=== PATIENT | male | born 1945 | race Caucasian/White ===

== ENCOUNTER 2018-04-26 09:43 | Inpatient (IN) | payer OTHER ==
--- NOTE | 2018-04-26 07:16 | PDHPUP ---
History & Physical Update H&P update statement: This history and physical update is based on an assessment of the patient which was completed after admission or registration (within 24 hours), but prior to the surgery/procedure. H&P update: H&P reviewed & patient examined, no change in patient's condition since H&P completed
[~2018-04-26 09:43] MED LIST: ROPIVACAINE 0.2% 80 MG, EPINEPHrine 0.2 MG, KETOROLAC TROMETHAMINE 30 MG in SYRINGE 0 ML IU ONE; TRANEXAMIC ACID 3,000 MG in NS (SYRINGE) 50 ML IRR ONE
[2018-04-26] MEDS ORDERED: FAMOTIDINE 20 MG TAB PO ONE (09:49)
[2018-04-26] MEDS ORDERED: ceFAZolin 2 GM/DEXTROSE 100 ML IV ONE (09:49)
[2018-04-26] MEDS ORDERED: DEXAMETHASONE 4 MG/ML VIAL IVP ONE (09:49)
[2018-04-26] MEDS ORDERED: ACETAMINOPHEN 325 MG TAB PO ONE (09:49)
[2018-04-26] MEDS ORDERED: LR 1,000 ML IV ONE (09:51)
[2018-04-26] MEDS ORDERED: TRANEXAMIC ACID 3,000 MG/50 ML BAG IRR ONE (11:00)
[2018-04-26] MEDS ORDERED: ROPIVACAINE HCL 150 MG/30 ML INJ ONE (11:38)
[2018-04-26] MEDS ORDERED: LIDOCAINE 2% 2 ML INJ ONE (11:41)
[2018-04-26] MEDS ORDERED: MIDAZOLAM 2 MG/2 ML VIAL ONE (11:52)
[2018-04-26] MEDS ORDERED: PROPOFOL/EMULSION 500 MG/50 ML BOTTLE IV ONE (11:57)
[2018-04-26] MEDS ORDERED: ALBUTEROL 3 ML DEYVIAL IH PRN (12:06)
[2018-04-26] MEDS ORDERED: fentaNYL 100 MCG/2 ML INJ IVP PRN (12:06)
[2018-04-26] MEDS ORDERED: NALOXONE HCL 0.4 MG/ML INJ IVP PRN ×2 (12:06)
--- NOTE | 2018-04-26 12:06 | PDANEPAE ---
ANE Past Medical History - Cardiovascular History Hx Hypertension: No Hx Arrhythmias: No Hx Chest Pain: No Hx Coronary Artery / Peripheral Vascular Disease: No Hx CHF / Valvular Disease: No Hx Palpitations: No - Pulmonary History Hx COPD: No Hx Asthma/Reactive Airway Disease: No Hx Recent Upper Respiratory Infection: No Hx Oxygen in Use at Home: No Hx Sleep Apnea: Yes Sleep Apnea Screening Result - Last Documented: Positive Pulmonary History Comment: pt smokes 2 cigars a week - Neurologic History Hx Cerebrovascular Accident: No Hx Seizures: No Hx Dementia: No - Endocrine History Hx Diabetes: No - Renal History Hx Renal Disorders: No - Liver History Hx Hepatic Disorders: No - Neurological & Psychiatric Hx Hx Neurological and Psychiatric Disorders: Yes Neurological / Psychiatric History Comment: L foot after crushed heel - Cancer History Hx Cancer: Yes Cancer History Comment: Bladder 2010 - Congenital Disorder History Hx Congenital Disorders: No - GI History Hx Gastrointestinal Disorders: No - Other Health History Other Health History: none - Chronic Pain History Chronic Pain: No - Surgical History Prior Surgeries: lipoma removed 07/31. 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 ANE Review of Systems Review of Systems: - Exercise capacity METS (RN): 4 METS ANE Patient History - Allergies Allergies/Adverse Reactions: No Known Allergies Allergy (Verified 03/23/18 10:18) - Home Medications Home Medications: Vortioxetine Hydrobromide [Brintellix] 10 mg PO DAILY 03/21/18 [Last Taken 04/26 08:00] amLODIPine BESYLATE [Norvasc 10 mg (*)] 10 mg PO DAILY 03/21/18 [Last Taken 08/01 08:00] buPROPion XL [Wellbutrin Xl] 300 mg PO DAILY 03/21/18 [Last Taken 04/26/18 08:00 ] - NPO status NPO Since - Liquids (Date): 04/26/18 NPO Since - Liquids (Time): 08:00 NPO Since - Solids (Date): 04/25/18 NPO Since - Solids (Time): 20:00 - Smoking Hx Smoking Status: Former smoker - Family Anes Hx Family Hx Anesthesia Complications: none ANE Labs/Vital Signs - Vital Signs Blood Pressure: 157/93 Heart Rate: 85 Respiratory Rate: 18 O2 Sat (%): 94 Height: 182.88 cm Weight: 113.398 kg ANE Physical Exam - Airway Neck exam: decreased ROM, short neck Mallampati Score: Class 2 Mouth exam: normal dental/mouth exam - Pulmonary Pulmonary: no respiratory distress, no rales or rhonchi, reduced air movement - Cardiovascular Cardiovascular: regular rate and rhythym, no murmur, rub, or gallop - ASA Status ASA Status: III ANE Anesthesia Plan Anesthesia Plan: spinal Regional Anesthesia: single shot NB, adductor canal FNB
[2018-04-26] MEDS ORDERED: DEXAMETHASONE 4 MG/ML VIAL IVP PRN (12:17)
[2018-04-26] MEDS ORDERED: DIAZEPAM 5 MG/ML 1 ML SYR IVP PRN (12:17)
[2018-04-26] MEDS ORDERED: ONDANSETRON 4 MG/2 ML VIAL IVP PRN ×2 (12:17→13:16)
[2018-04-26] MEDS ORDERED: LR 500 ML IV PRN (12:17)
[2018-04-26] MEDS ORDERED: ONDANSETRON 4 MG/2 ML VIAL ONE (12:24)
[2018-04-26] MEDS ORDERED: RANITIDINE 50 MG/2 ML VIAL ONE (12:24)
[2018-04-26] MEDS ORDERED: fentaNYL 100 MCG/2 ML INJ ONE (12:35)
[2018-04-26] MEDS ORDERED: PROPOFOL 200 MG/20 ML VIAL ONE (12:36)
[2018-04-26] MEDS ORDERED: BISACODYL 10 MG SUPP PR PRN (13:16)
[2018-04-26] MEDS ORDERED: POLYETHYLENE GLYCOL 3350 17 GM PKT PO PRN (13:16)
[2018-04-26] MEDS ORDERED: oxyCODONE IR 5 MG TAB PO PRN (13:16)
[2018-04-26] MEDS ORDERED: ONDANSETRON DISINTEGRATING 4 MG TAB PO PRN (13:16)
[2018-04-26] MEDS ORDERED: PROMETHAZINE HCL 25 MG SUPPR PR PRN (13:16)
[2018-04-26] MEDS ORDERED: DIPHENOXYLATE/ATROPINE LOMOTIL 1 TAB PO PRN (13:16)
[2018-04-26] MEDS ORDERED: MAGNESIUM HYDROXIDE 30 ML UDCUP PO PRN (13:16)
[2018-04-26] MEDS ORDERED: LACTULOSE 20 GM/30 ML UDCUP PO PRN (13:16)
[2018-04-26] MEDS ORDERED: TEMAZEPAM 15 MG CAP PO PRN (13:16)
[2018-04-26] MEDS ORDERED: METOCLOPRAMIDE 10 MG/2 ML VIAL IVP PRN (13:16)
[2018-04-26] MEDS ORDERED: diphenhydrAMINE 25 MG CAP PO PRN (13:16)
[2018-04-26] MEDS ORDERED: CYCLOBENZAPRINE 10 MG TAB PO PRN (13:16)
[2018-04-26] MEDS ORDERED: PROMETHAZINE HCL 25 MG/ML INJ IVP PRN (13:16)
--- NOTE | 2018-04-26 13:16 | POSTOPPROG ---
Post Op Note Date of Operation: 04/26/18 Surgeon: Parvez Perez Event Coordinator Marketing And Sales: leola perez Anesthesiologist: dr. eagle Anesthesia: Spinal, Other (Specify) (adductor canal block) Pre-op Diagnosis: left knee OA Post-op Diagnosis: same Indication: left knee pain due to OA that failed conservative measures Procedure: L TKA robot assisted, sensor assisted Findings: severe knee OA Inf/Abcess present in the surg proc area at time of surgery?: No EBL: 50-100
[2018-04-26] MEDS ORDERED: LR 1,000 ML IV SCH (13:30)
[2018-04-26] MEDS: ACETAMINOPHEN 325 MG TAB PO SCH ×2 (17:53→23:43)
[2018-04-26] MEDS: ceFAZolin 2 GM/DEXTROSE 100 ML IV SCH (18:01)
--- NOTE | 2018-04-26 18:43 | PDMN ---
Medical Necessity Medical necessity: Pt meets IP criteria per PA; est los >2 mn s/p L TKA POD #0; comorbid advanced age, HTN, L medial thigh mass excision w/ post-op staph infection; per order 04/26/18
--- NOTE | 2018-04-26 19:18 | GOP ---
DATE OF OPERATION: 04/26/2018 SURGEON: Kathy Armendariz MD PERINATAL TECHNICIAN: Ely Armendariz PA-C. ANESTHESIA: Spinal. PREOPERATIVE DIAGNOSIS: Left knee, osteoarthritis. POSTOPERATIVE DIAGNOSIS: Left knee, osteoarthritis. PROCEDURE PERFORMED: Left total knee arthroplasty with computer navigation, robotic assist. FINDINGS: ESTIMATED BLOOD LOSS: 30 mL. INDICATIONS: The patient is a 73-year-old male with severe and progressive pain and deformity of the left knee unresponsive to conservative care. The risks and benefits of surgical intervention were explained in detail. DESCRIPTION OF PROCEDURE: The patient was brought to the operative room and placed on the table in the supine position. Spinal anesthesia was induced without difficulty. A pneumatic tourniquet was applied about the left proximal thigh, and the leg was prepped and draped in a sterile fashion. The leg chaidez was applied. After exsanguination by elevation the tourniquet was inflated to 250 mmHg. Incision was made anterior medial from the tibial tuberosity to a point 2 cm proximal to the superior pole of the patella. Medial parapatellar arthrotomy was carried out from the superior pole of the patella and posteriorly in line with the fibers of the Type II VMO. The medial collateral ligament was elevated and the infrapatellar fat pad was resected. The patella was everted and the articular surface was excised. A 40 mm patellar button was placed. Attention was turned first to the distal aspect of the femur. After exposure of the femur, 2 half pins were placed for fixation of the femoral array. In a similar fashion, 2 pins were placed anteromedial on the tibia for fixation of the tibial array. External land marking and registration of the hip center was performed without difficulty. Internal femoral and tibial registration was carried out without difficulty and the femoral and tibial checkpoints were placed and verified for accuracy. Attention was turned to the femur. The foot print for the size 6 femoral component was cut with the saw using the [employer] robotic system and verified for accuracy against the CT based plan. In a similar fashion, the saw was used to cut the footprint for the size 7 tibial component using the [employer] system and verified for accuracy against the CT based plan. The tibial articular surface was excised without difficulty, followed by the intercondylar box cut. The knee was extended and the remnants of the medial and lateral meniscus were excised. The posterior capsule was injected with ropivacaine, epinephrine and Toradol. A size 7 tibial tray was positioned. Trial reduction was then carried out. There was excellent range of motion, alignment, and stability using the 7 x 9 mm polyethylene. All trials were then removed. The joint was thoroughly irrigated and carefully dried. The pressfit components were implanted. The permanent 7 x 9 mm polyethylene was placed without difficulty. The tourniquet was deflated and all bleeders were coagulated. The wound was thoroughly irrigated and closed using interrupted sutures of 2-0 Vicryl for the joint capsule. The subcu was closed with 3-0 Vicryl and the skin with 4-0 Monocryl. Dermabond and Steri-Strips were applied followed by a compressive dressing. The patient was then moved from the operating room to the recovery room in good condition, having tolerated the procedure well. PATHOLOGY: 1. Severe tricompartmental Osteoarthritis. IMPLANTS: 1. 40 mm patella button. Size 6 femur, size 7 tibia, permanent 7 x 9 mm polyethylene, PressFit components. 2. Pain and deformity of the left knee unresponsive to conservative care. The risks and benefits of surgical intervention were explained in detail. /[id number]/MODL MTDD
--- NOTE | 2018-04-26 19:47 | POSTANESTH ---
Post Anesthetic Evaluation Cardiovascular Status: Normal, Stable, Similar to Pre-Op Cond Respiratory Status: Normal, Stable, Similar to Pre-op Cond. Level of Consciousness/Mental Status: Mildly Sleepy, Arousable Pain Control: Adequate, Prn Tx Ordered Nausea/Vomiting Control: Adequate, Prn Tx Ordered Complications Possibly Related to Anesthesia: None Noted
[2018-04-26] MEDS: FAMOTIDINE 20 MG TAB PO SCH (20:33)
[2018-04-26] MEDS: ASPIRIN 81 MG CHEWABLE TAB PO SCH (20:33)
[2018-04-26] MEDS: SENNOSIDES/DOCUSATE SODIUM TAB PO SCH (20:34)
[2018-04-27] MEDS: ceFAZolin 2 GM/DEXTROSE 100 ML IV SCH (02:53)
[2018-04-27] MEDS: ACETAMINOPHEN 325 MG TAB PO SCH (05:55)
[2018-04-27 07:33] VITALS: BP 147/82
--- NOTE | 2018-04-27 08:46 | SOAPPROG ---
SOAP Progress Note Assessment/Plan: Assessment: Patient is doing well POD 1 s/p L TKA Pain management: pain is well controlled on oral pain meds. VTE ppx: recommend aspirin 81 mg BID for 4 weeks, cont ABBEY and SCDs Anemia: level is expected initially postop. Asymptomatic. Continue to monitor D/c planning: d/c to home today pending release from PT Plan: 04/27/18 08:45 Subjective: patient is doing well today, denies SOB, chest pain and N/V. Objective: Vital Signs Temp Pulse Resp BP Pulse Ox 36.8 C 82 16 147/82 H 92 04/27/18 07:32 04/27/18 07:32 04/27/18 07:32 04/27/18 07:32 04/27/18 07:32 Laboratory Results 04/27/18 04:41 04/26/18 04/27/18 04/28/18 05:59 05:59 05:59 Intake Total 2550 500 Output Total 1410 Balance 1140 500 LLE; incision dressing is clean and dry, NVI, +pf/df ICD10 Worksheet Patient Problems: Problems Problem Status Onset Primary localized osteoarthritis of left knee Acute Altered mental status, unspecified Acute
[2018-04-27] MEDS ORDERED: SOLIFENACIN SUCCINATE 5 MG TAB PO SCH (09:00)
[2018-04-27] MEDS ORDERED: buPROPion XL 150 MG TAB PO SCH (09:00)
[2018-04-27] MEDS ORDERED: Vortioxetine Hydrobromide [Trintellix] 10 MG PO SCH (09:00)
--- NOTE | 2018-04-27 09:05 | GDS ---
ADMISSION DIAGNOSIS: Left knee osteoarthritis. DISCHARGE DIAGNOSIS: Left knee osteoarthritis. PROCEDURE: Left total knee arthroplasty, Robotic assisted. VTE PROPHYLAXIS: Recommend aspirin 81 mg twice daily for 4 weeks. BRIEF DESCRIPTION OF HOSPITAL STAY: Patient was admitted for an elective joint arthroplasty. The pa tient tolerated the procedure well and has passed physical therapy. The patient was given appropriat e antibiotic prophylaxis and venous thromboembolism prophylaxis. The patient's pain was well control led on oral pain medication, patient was holding down food, and had urinated. Decision was made to d ischarge the patient. The patient was given post-operative prescriptions pre-operatively. PLAN: To follow as scheduled in Dr. Armendariz's office May 15 at 11:45 a.m. /[id number]/MODL
[2018-04-27] MEDS: SENNOSIDES/DOCUSATE SODIUM TAB PO SCH (09:12)
[2018-04-27] MEDS: ASPIRIN 81 MG CHEWABLE TAB PO SCH (09:12)
[2018-04-27] MEDS: FAMOTIDINE 20 MG TAB PO SCH (09:13)
--- NOTE | 2018-04-27 12:04 | ASMTLACE ---
SHERI Length of stay for Answers: 2 days current admission Acuity / Level of Answers: Yes Care: Did the patient have an inpatient admission? Comorbidities - select Answers: Other Notes: HTN all that apply # of Emergency department Answers: 0 visits in the last 6 months Social determinants Answers: History of substance abuse (ETOH, street drugs, prescription drugs, etc.) Mental health diagnosis (anxiety, depression, pers onality disorders, etc.) Score: 12 Date Signed: 04/27/2018 11:55 AM Electronically Signed By:JENNI Ramirez
== END 2018-04-27 10:30 | disposition home or self-care (01) | DRG 470 ==
LOC: F3N 09:43 → OBSVTOIN 13:18 → F3N 14:18
PROVIDERS: ADMIT Orthopaedic Surgery; ATTEND Orthopaedic Surgery
PROC: 8E0Y0CZ Robotic Assisted Procedure of Lower Extremity, Open Approach (ICD-10-PCS; principal; 2018-04-26 12:00)
PROC: 8E0YXBZ Computer Assisted Procedure of Lower Extremity (ICD-10-PCS; principal; 2018-04-26 12:00)
PROC: 0SRD0JZ Replacement of Left Knee Joint with Synthetic Substitute, Open Approach (ICD-10-PCS; principal; 2018-04-26 12:00)
DX: M17.12 Unilateral primary osteoarthritis, left knee (principal)
CPT/HCPCS: 97116-GP; 97161-GP; G8978-GP-CK; G8979-GP-CI; J0171; J0690; J1100; J1885; J2250; J2405; J2704; J2780; J2795; J3010

== ENCOUNTER → 2018-06-13 | Outpatient (CLI) | payer OTHER | LOC: FIMAGING 09:44 | PROVIDERS: ATTEND Family Medicine | DX: Z13.6 Encounter for screening for cardiovascular disorders (principal); Z87.891 Personal history of nicotine dependence ==